=== PATIENT | female | born 1985 | race Caucasian/White ===

== ENCOUNTER 2017-03-30 06:24 | Outpatient (CLI) | payer MEDICAID | END 2017-03-30 07:45 | disposition home or self-care (01) | LOC: OBT 06:24 → L-D 06:24 → OBT 07:45 | DX: O36.8130 Decreased fetal movements, third trimester, not applicable or unspecified (principal); Z3A.38 38 weeks gestation of pregnancy | CPT/HCPCS: 76818 ==

== ENCOUNTER 2017-04-09 09:41 | Inpatient (IN) | payer MEDICAID ==
[2017-04-09] MEDS ORDERED: METHYLERGONOVINE 0.2 MG INJ IM ×2 (10:00→17:00)
[2017-04-09] MEDS ORDERED: MISOPROSTOL 200 MCG TAB PR ×2 (10:00→17:00)
[2017-04-09] MEDS ORDERED: OXYTOCIN 30 UNITS/LR 500 ML IV ×3 (10:00→17:00)
[2017-04-09] MEDS ORDERED: CEFAZOLIN 2 GM/50 ML (PMX) 50 ML IV (10:00)
[2017-04-09] MEDS ORDERED: CARBOPROST 250 MCG INJ IM ×2 (10:00→17:00)
[2017-04-09 11:07] LABS: ADD MAN DIFF? NO
[2017-04-09 11:10] LABS: WHITE BLOOD COUNT 7.7 10^3/ul (4.8-10.8)
[2017-04-09 11:10] LABS: BASOPHILS % 0.4 % (0.0-2.0); EOSINOPHILS # 0.2 10^3/ul (0.0-0.5); HEMATOCRIT 38.6 % (37.0-47.0); HEMOGLOBIN 13.1 g/dl (12.0-16.0); LYMPHOCYTES # 2.1 10^3/ul (0.8-2.9); LYMPHOCYTES % 27.8 % (15.0-51.0); MEAN CORPUSCULAR HEMOGLOBIN 28.9 pg (29.0-33.0); MEAN CORPUSCULAR HGB CONC 33.9 g/dl (32.0-37.0); MEAN CORPUSCULAR VOLUME 85.2 fl (82.0-101.0); MEAN PLATELET VOLUME 10.6 fl (7.4-10.4); MONOCYTE # 0.4 10^3/ul (0.3-0.9); MONOCYTES % 5.1 % (0.0-11.0); NEUTROPHIL # 4.9 10^3/ul (1.6-7.5); NEUTROPHILS % 64.2 % (39.0-77.0); PLATELET COUNT 157 10^3/UL (140-415); RED BLOOD COUNT 4.53 10^6/ul (4.20-5.40); RED CELL DISTRIBUTION WIDTH 13.5 % (11.5-14.5)
[2017-04-09] MEDS: LACTATED RINGER'S 1,000 ML IV ×3 (11:15→19:36)
[2017-04-09 11:37] LABS: INR 0.94; PROTIME 12.7 Sec (11.9-14.9)
[2017-04-09 11:38] LABS: PARTIAL THROMBOPLASTIN TIME 25.1 Sec (25.0-35.0)
[2017-04-09] MEDS ORDERED: CITRIC ACID/SODIUM CITRATE 15 ML CUP ×2 (12:23→12:24)
[2017-04-09] MEDS: CITRIC ACID/SODIUM CITRATE 15 ML CUP PO (12:28)
[2017-04-09] MEDS ORDERED: morphine SULFATE/PF (10 MG/10 ML) INJ (13:03)
[2017-04-09] MEDS ORDERED: ONDANSETRON 4 MG INJ (13:03)
[2017-04-09] MEDS ORDERED: METOCLOPRAMIDE 10 MG INJ (13:03)
[2017-04-09] MEDS ORDERED: KETOROLAC 30 MG INJ (13:04)
[2017-04-09 13:15] LABS: HEPATITIS B SURFACE ANTIGEN NEGATIVE (NEGATIVE)
[2017-04-09] MEDS ORDERED: EPHEDrine SULFATE 50 MG/5 ML SYG (13:21)
[2017-04-09] MEDS ORDERED: FENTAnyl 50 MCG/ML VIAL (13:48)
[2017-04-09] MEDS ORDERED: morphine 4 MG/ML VIAL IV (14:30)
[2017-04-09] MEDS ORDERED: NALOXONE (0.4 MG/ML) INJ IV (14:30)
[2017-04-09] MEDS ORDERED: morphine (1 MG/ML) 10ML SYRINGE IV ×3 (14:30)
[2017-04-09] MEDS ORDERED: ONDANSETRON 4 MG INJ IV ×2 (14:30)
[2017-04-09] MEDS ORDERED: morphine 2 MG INJ IV ×2 (14:30)
[2017-04-09] MEDS: OXYTOCIN 30 UNITS/LR 500 ML IV (15:00)
[2017-04-09] MEDS ORDERED: NA PHOSPHATE/BIPHOS 133 ML ENEMA PR (17:00)
[2017-04-09] MEDS: CEFAZOLIN 2 GM/50 ML (PMX) 50 ML IV (17:58)
[2017-04-09] MEDS: DIPHENHYDRAMINE 50 MG INJ IV (17:59)
[2017-04-09] MEDS: SENNA/DOCUSATE NA (8.6MG/50MG) TAB PO (20:55)
[2017-04-09 21:22] LABS: RAPID PLASMA REAGIN NONREACTIVE (NR)
[2017-04-09] MEDS: CLINDAMYCIN 300 MG CAP PO (23:34)
[2017-04-10] MEDS: DIPHENHYDRAMINE 50 MG INJ IV ×2 (00:17→13:01)
[2017-04-10] MEDS: CEFAZOLIN 2 GM/50 ML (PMX) 50 ML IV ×2 (03:03→08:25)
[2017-04-10] MEDS: LACTATED RINGER'S 1,000 ML IV ×4 (03:03→23:50)
[2017-04-10] MEDS: CLINDAMYCIN 300 MG CAP PO ×4 (05:48→23:49)
[2017-04-10] MEDS: SENNA/DOCUSATE NA (8.6MG/50MG) TAB PO ×2 (08:25→21:50)
[2017-04-10 09:15] LABS: ADD MAN DIFF? NO
[2017-04-10 09:18] LABS: WHITE BLOOD COUNT 7.2 10^3/ul (4.8-10.8)
[2017-04-10 09:18] LABS: BASOPHILS % 0.3 % (0.0-2.0); EOSINOPHILS # 0.1 10^3/ul (0.0-0.5); EOSINOPHILS % 1.4 % (0.0-7.0); HEMATOCRIT 32.9 % (37.0-47.0); HEMOGLOBIN 11.1 g/dl (12.0-16.0); LYMPHOCYTES # 1.9 10^3/ul (0.8-2.9); LYMPHOCYTES % 27.1 % (15.0-51.0); MEAN CORPUSCULAR HEMOGLOBIN 29.2 pg (29.0-33.0); MEAN CORPUSCULAR HGB CONC 33.7 g/dl (32.0-37.0); MEAN CORPUSCULAR VOLUME 86.6 fl (82.0-101.0); MEAN PLATELET VOLUME 10.4 fl (7.4-10.4); MONOCYTE # 0.4 10^3/ul (0.3-0.9); MONOCYTES % 5.7 % (0.0-11.0); NEUTROPHIL # 4.7 10^3/ul (1.6-7.5); NEUTROPHILS % 64.8 % (39.0-77.0); PLATELET COUNT 131 10^3/UL (140-415); RED CELL DISTRIBUTION WIDTH 13.6 % (11.5-14.5)
[2017-04-10] MEDS: KETOROLAC 30 MG INJ IV (09:30)
[2017-04-10] MEDS: BISACODYL 10 MG SUPP PR (11:28)
[2017-04-10] MEDS: HYDROCODONE/APAP (5/325) TAB PO (14:41)
[2017-04-10] MEDS: IBUPROFEN 800 MG TAB PO (21:50)
[2017-04-10] MEDS: LANOLIN 7 GM TUBE TOP (23:49)
[2017-04-11] MEDS: OXYCODONE/ACETAMINOPHEN (5/325) TAB PO (05:43)
[2017-04-11] MEDS: CLINDAMYCIN 300 MG CAP PO ×4 (05:43→23:37)
[2017-04-11] MEDS: IBUPROFEN 800 MG TAB PO ×3 (06:00→21:36)
[2017-04-11] MEDS: SENNA/DOCUSATE NA (8.6MG/50MG) TAB PO ×2 (08:53→21:36)
[2017-04-11] MEDS: LACTATED RINGER'S 1,000 ML IV ×2 (19:23)
[2017-04-12] MEDS: LACTATED RINGER'S 1,000 ML IV ×2 (03:18→06:57)
[2017-04-12] MEDS: CLINDAMYCIN 300 MG CAP PO ×2 (05:45→12:38)
[2017-04-12] MEDS: IBUPROFEN 800 MG TAB PO ×2 (05:45→14:09)
[2017-04-12] MEDS: HYDROCODONE/APAP (5/325) TAB PO (08:50)
[2017-04-12] MEDS: MEASLES,MUMPS,RUBELLA VACCINE INJ SC* (08:51)
[2017-04-12] MEDS: DIPHTH/TET/ACEL PERTUSS (ADULT) 0.5 ML VIAL IM* (08:51)
[2017-04-12] MEDS: SENNA/DOCUSATE NA (8.6MG/50MG) TAB PO (08:51)
== END 2017-04-12 16:31 | disposition home or self-care (01) | DRG 766 ==
LOC: L-D 09:41 → PP1 16:55
PROVIDERS: Obstetrics & Gynecology
PROC: 10D00Z1 Extraction of Products of Conception, Low, Open Approach (ICD-10-PCS; principal; 2017-04-09 12:30)
PROC: 0UL70ZZ Occlusion of Bilateral Fallopian Tubes, Open Approach (ICD-10-PCS; 2017-04-09 12:30)
PROC: 3E033VJ Introduction of Other Hormone into Peripheral Vein, Percutaneous Approach (ICD-10-PCS; 2017-04-09 12:30)
DX: O34.211 Maternal care for low transverse scar from previous cesarean delivery (principal); Z30.2 Encounter for sterilization; Z37.0 Single live birth; Z3A.39 39 weeks gestation of pregnancy
CPT/HCPCS: 71046; 85025; 85610; 85730; 86592; 86850; 86900; 86901; 87340; 88302; 90715; 94760; 99464

== ENCOUNTER 2017-04-21 17:58 | Emergency (ER) | payer SELFPAY, MEDICAID | END 2017-04-22 00:49 | disposition left against medical advice (07) | LOC: FTE 17:58 | DX: Z53.21 Procedure and treatment not carried out due to patient leaving prior to being seen by health care provider (principal) ==